=== PATIENT | female | born 1995 | race Caucasian/White ===

== ENCOUNTER 2020-09-26 17:31 | Emergency (ER) | payer BC, SELFPAY ==
--- NOTE | ~2020-09-26 | XR_ITS ---
EXAMINATION: XR chest 2V 09/26/2020 17:59 INDICATION: Wheezing and congestion. Cough. PROCEDURE: 2 view chest COMPARISON: No prior studies for comparison. FINDINGS: The lungs are clear. The cardiomediastinal silhouette is within normal limits. There are no pleural effusions. There is no pneumothorax suspected. IMPRESSION: 1: NO ACUTE CARDIOPULMONARY DISEASE. Reviewed, dictated and finalized at location A.
[2020-09-26 17:38] VITALS: BP 146/72; PULSE 91; RESP 18; TEMP 36.6; O2SAT 98
--- NOTE | 2020-09-26 17:47 | ED.URI ---
HPI - URI/Sore Throat General Chief Complaint: Upper Respiratory Infection Stated Complaint: congestion sore throat and cough Time Seen by Provider: 09/26/20 17:48 Source: patient and RN notes reviewed Mode of arrival: ambulatory Limitations: no limitations History of Present Illness HPI Narrative: 25-year-old female presents to the [facility] with complaints of cough, wheezing, congestion for the last 5 days. Has tried taking DayQuil with no relief. Denies fevers, nausea, vomiting or diarrhea. Denies chest pain. No abdominal pain. Related Data Home Medications Medication Instructions Recorded Confirmed aripiprazole 15 mg PO DAILY 09/26/20 09/26/20 buspirone 10 mg PO BID 09/26/20 09/26/20 duloxetine 60 mg PO DAILY 09/26/20 09/26/20 omeprazole 40 mg PO DAILY 09/26/20 09/26/20 Allergies Allergy/AdvReac Type Severity Reaction Status Date / Time Penicillins Allergy Unknown Verified 06/09/17 14:13 Review of Systems Review of Systems: Narrative: CONSTITUTIONAL: Denies fever, chills, or sweats. EYES: Denies visual changes, redness, or discharge. ENT: Denies rhinorrhea, congestion, sore throat, or otalgia. CARDIOVASCULAR: Denies chest pain, palpitations, or edema. RESPIRATORY: Reports cough with intermittent dyspnea and wheezing. Chest congestion GASTROINTESTINAL: Denies abdominal pain, nausea, vomiting, or diarrhea. MUSCULOSKELETAL: Denies back pain, joint pain, or myalgia. NEUROLOGIC: Denies headache, numbness, or weakness. PSYCHIATRIC: Denies anxiety or depression. All other systems reviewed are negative, except as documented in HPI. [facility] Surgical History Surgical History (Updated 09/26/20 @ 18:11 by Deb Velez) History of cholecystectomy Hx of tonsillectomy Family History Family History Other Diabetes mellitus Social History Social History Smoking status: Never smoker Alcohol intake: current Gender identity (if verbalized by the patient): Female Comments At the time of my signature, I reviewed and agree with the nursing past medical, surgical, social, and family history. There is no relevant family history pertinent to the patient complaint. Exam Narrative: Exam Narrative: GENERAL: This is a well-nourished, well-developed patient, in no apparent distress. obese HEAD: normocephalic, atraumatic. EYES: PERRL. Sclera clear/white. Vision is grossly intact. EARS: External ears normal, auditory canals clear and without drainage, TMs normal without perforation. Hearing grossly intact. NOSE: External nose normal with no obvious nasal discharge, nares without redness, no rhinorrhea. THROAT: Mucous membranes moist, posterior pharynx clear. NECK: Neck supple, non-tender without lymphadenopathy, masses or thyromegaly. CARDIOVASCULAR: Regular rate and rhythm without murmurs, gallops, or rubs. RESPIRATORY: Left lungs clear to auscultation. right lung wheezes. Without rales, or rhonchi. GASTROINTESTINAL: Abdomen soft, non-tender, nondistended. SKIN: warm, Dry, intact with no suspicious lesions or rash, good texture and turgor. NEURO: awake, alert, and oriented to person, place and time. There were no obvious focal neurologic abnormalities. Course Course Emergency Course: 1824 reevaluation post albuterol treatment. Lungs are now clear to auscultation. Patient states that she is feeling much better Vital Signs Vital signs: Vital Signs Temperature 98 F 09/26/20 17:38 Pulse Rate 91 09/26/20 17:38 Respiratory Rate 18 09/26/20 17:38 Blood Pressure 146/72 H 09/26/20 17:38 Pulse Oximetry 98 09/26/20 17:38 Temperature 98 F 09/26/20 17:38 Pulse Rate 91 09/26/20 17:38 Respiratory Rate 18 09/26/20 17:38 Blood Pressure 146/72 H 09/26/20 17:38 Pulse Oximetry 98 09/26/20 17:38 Reviewed, blood pressure mildly elevated. Educated patient on the importance of following up with prim
[2020-09-26] MEDS: ALBUTEROL SULFATE NEB 2.5 MG/3 ML INH INHALATION (18:04)
== END 2020-09-26 18:30 | disposition home or self-care (01) ==
PROVIDERS: Emergency Provider Nurse Practitioner
DX: J40 Bronchitis, not specified as acute or chronic (principal); K21.9 Gastro-esophageal reflux disease without esophagitis; F41.9 Anxiety disorder, unspecified; F32.9 Major depressive disorder, single episode, unspecified
CPT/HCPCS: 71046; 94640; 99213; G0463

== ENCOUNTER 2021-04-07 12:57 | Emergency (ER) | payer BC, SELFPAY ==
[2021-04-07 13:04] VITALS: BP 141/72; PULSE 93; RESP 20; TEMP 36.2; O2SAT 98
[2021-04-07 13:15] VITALS: BP 141/72; PULSE 93; RESP 20; TEMP 36.2; O2SAT 98
--- NOTE | 2021-04-07 13:22 | ED.URI ---
HPI - URI/Sore Throat General Chief Complaint: Upper Respiratory Infection Stated Complaint: Cough/Chest Congestion Time Seen by Provider: 04/07/21 13:18 Source: patient and RN notes reviewed Mode of arrival: ambulatory Limitations: no limitations History of Present Illness HPI Narrative: Keren is a 25-year-old female patient who ambulated into the [facility] today. Patient states she has a 1 day history of cough congestion and postnasal drainage. Patient has a history of allergies and bronchitis. Patient has been taking DayQuil at home without relief. MD elicited complaint: nasal congestion Related Data Home Medications Medication Instructions Recorded Confirmed aripiprazole 15 mg PO DAILY 09/26/20 04/07/21 buspirone 10 mg PO BID 09/26/20 04/07/21 duloxetine 60 mg PO DAILY 09/26/20 04/07/21 omeprazole 40 mg PO DAILY 09/26/20 04/07/21 clonazepam 0.5 mg PO DAILY 04/07/21 04/07/21 Allergies Allergy/AdvReac Type Severity Reaction Status Date / Time Penicillins Allergy Unknown Rash Verified 04/07/21 13:06 Review of Systems Review of Systems: CONSTITUTIONAL: Denies body aches, fever, chills, or sweats. EYES: Denies visual changes, redness, or discharge. ENT:+rhinorrhea,+ congestion,denies sore throat, or otalgia. CARDIOVASCULAR: Denies chest pain, palpitations, or edema. RESPIRATORY: + cough denies dyspnea. GASTROINTESTINAL: Denies abdominal pain, nausea, vomiting, or diarrhea. GENITOURINARY: Denies dysuria or hematuria. SKIN: Denies rash, itching, or wounds. MUSCULOSKELETAL: Denies back pain, joint pain, or myalgia. NEUROLOGIC: Denies headache, numbness, tingling, or weakness. PSYCH: Denies depression or anxiety. states hx bipolar All systems reviewed & are unremarkable except as noted in HPI and below PMFSH Surgical History Surgical History History of cholecystectomy Hx of tonsillectomy Family History Family History Other Diabetes mellitus Social History Social History Smoking status: Never smoker Alcohol intake: current Gender identity (if verbalized by the patient): Female Comments At time of signature, I have reviewed and agree with nursing past medical, surgical, social and family history unless otherwise noted. Please see nursing chart for further information. There is no relevant family history pertinent to the presenting complaint Exam Narrative: GENERAL: Well-appearing, well-nourished, and in no acute distress. HEAD: Normocephalic, atraumatic. EYES: EOMI. No redness or drainage. Conjunctivae normal. ENT: Mucous membranes pink and moist. Nasal membranes erythematous this with clear rhinorrhea. Tympanic membranes are dull with minimal bulging. Posterior pharynx is erythemic with moderate postnasal drainage.. NECK: Normal AROM. Supple. No lymphadenopathy. CHEST: No respiratory distress. Clear to auscultation. HEART: Regular rate and rhythm. No murmur appreciated. Normal peripheral pulses. ABDOMEN: Soft, nontender, nondistended, normal active bowel sounds. MUSCULOSKELETAL: No bony tenderness. EXTREMITIES: Normal range of motion. No edema. SKIN: Warm, dry, no rash. Capillary refill normal. Normal skin turgor. NEURO: No focal deficits. Alert and oriented x3. Gait steady. PSYCH: Normal affect. No signs of depression or anxiety. Course Vital Signs Vital signs: Vital Signs Temperature 36.2 C L 04/07/21 13:04 Pulse Rate 93 04/07/21 13:04 Respiratory Rate 20 04/07/21 13:04 Blood Pressure 141/72 H 04/07/21 13:04 Pulse Oximetry 98 04/07/21 13:04 Temperature 36.2 C L 04/07/21 13:15 Pulse Rate 93 04/07/21 13:15 Respiratory Rate 20 04/07/21 13:15 Blood Pressure 141/72 H 04/07/21 13:15 Pulse Oximetry 98 04/07/21 13:15 Reviewed. Pt has been instructed to follow up with her PCP regarding
== END 2021-04-07 13:30 | disposition home or self-care (01) ==
PROVIDERS: Emergency Provider Nurse Practitioner Family
DX: J06.9 Acute upper respiratory infection, unspecified (principal)
CPT/HCPCS: 99213; G0463

== ENCOUNTER 2021-05-25 14:28 | Emergency (ER) | payer BC, SELFPAY ==
[2021-05-25 14:34] VITALS: BP 139/85; PULSE 88; RESP 18; TEMP 36.1; O2SAT 99
--- NOTE | 2021-05-25 14:40 | ED.SKABFB ---
HPI - Skin/Abscess/Foreign Bdy General Chief complaint: Skin/Abscess/Foreign Body Stated complaint: Rash Time Seen by Provider: 05/25/21 14:40 Source: patient Mode of arrival: ambulatory Limitations: no limitations History of Present Illness HPI narrative: Keren Willingham is a 26 yo female with n PMH with a rash to back of R knee. size 4x2 with blistery appearance, x2 days Related Data Home Medications Medication Instructions Recorded Confirmed aripiprazole 15 mg PO DAILY 09/26/20 05/25/21 buspirone 10 mg PO BID 09/26/20 05/25/21 duloxetine 60 mg PO DAILY 09/26/20 05/25/21 clonazepam 0.5 mg PO DAILY PRN 04/07/21 05/25/21 Allergies Allergy/AdvReac Type Severity Reaction Status Date / Time Penicillins Allergy Unknown Rash Verified 05/25/21 14:40 Review of Systems Review of Systems: CONSTITUTIONAL: Denies fever, chills, sweats. EYES: Denies visual changes, redness, discharge. ENT: Denies rhinorrhea, congestion, sore throat, otalgia. CARDIOVASCULAR: Denies chest pain, palpitations, edema. RESPIRATORY: Denies dyspnea, wheezing, cough GASTROINTESTINAL: Denies abdominal pain, nausea, vomiting, diarrhea. GENITOURINARY: Denies dysuria, hematuria, abnormal discharge SKIN: Denies rash or itching. 4 x 2 reddened rash with pustular looking top, mild tenderness, no referred pain NEUROLOGIC: Denies numbness, or focal weakness. PSYCHIATRIC: Denies anxiety or depression. [facility] Past Medical History Medical History No acute medical problems Surgical History Surgical History History of cholecystectomy Hx of tonsillectomy Family History Family History Other Diabetes mellitus Social History Social History Smoking status: Never smoker Alcohol intake: current Gender identity (if verbalized by the patient): Female Comments At time of signature, I agree with nursing past medical, surgical, social and family history. There is no relevant family history pertinent to the presenting complaint. Exam Narrative: GENERAL: This is a well-nourished, well-developed patient, in mild distress. HEAD: normocephalic, atraumatic. EYES: Sclera clear/white. Vision is grossly intact. EARS: External ears normal, . Hearing grossly intact. NOSE: External nose normal , no rhinorrhea. THROAT: Mucous membranes moist, NECK: Neck supple, CARDIOVASCULAR: Regular rate and rhythm without murmurs, gallops, or rubs. RESPIRATORY: Clear to auscultation. Breath sounds equal bilaterally. No wheezes, rales, or rhonchi. GASTROINTESTINAL: Abdomen soft, non-tender, SKIN: warm, intact with n4x2 eruthematous area on nack of R knee, pustular and tenderness, no referred pain, no surrounding tenderness NEURO: awake, alert, and oriented to person, place and time. There were no obvious focal neurologic abnormalities. Steady gait EXTREMITIES: Normal range of motion. BACK: Nontender without deformity Course Course Emergency Course: Patient has small area behind right knee that looks pustular and erythematous but with no referred pain or painful is outside the 4 x 2 area Treat with triamcinolone and Keflex Discussed penicillin allergy and unlikelihood but possible cross reaction discussed how that would appear, to keep Band-Aid over area until healed Vital Signs Vital signs: Vital Signs Temperature 96.9 F L 05/25/21 14:34 Pulse Rate 88 05/25/21 14:34 Respiratory Rate 18 05/25/21 14:34 Blood Pressure 139/85 05/25/21 14:34 Pulse Oximetry 99 05/25/21 14:34 Temperature 96.9 F L 05/25/21 14:42 Pulse Rate 88 05/25/21 14:42 Respiratory Rate 18 05/25/21 14:42 Blood Pressure 139/85 05/25/21 14:42 Pulse Oximetry 99 05/25/21 14:42 MDM - Skin/Abscess/Foreign Bdy Differential Diagnosis Differential diagnosis
[2021-05-25 14:42] VITALS: BP 139/85; PULSE 88; RESP 18; TEMP 36.1; O2SAT 99
== END 2021-05-25 15:11 | disposition home or self-care (01) ==
PROVIDERS: Emergency Provider Nurse Practitioner
DX: L03.115 Cellulitis of right lower limb (principal); K21.9 Gastro-esophageal reflux disease without esophagitis; F41.9 Anxiety disorder, unspecified; F32.A Depression, unspecified
CPT/HCPCS: 99213; G0463

== ENCOUNTER 2021-06-23 14:08 | Outpatient (CLI) | payer BC, SELFPAY ==
--- NOTE | ~2021-06-23 | US_ITS ---
US breast LT limited 06/23/2021 14:43 Indication: Left breast lump Procedure: High-resolution Limited ultrasound of the left breast Comparison: No prior studies for comparison. Findings: At 3:00, 10 cm from the nipple, there is an oval predominantly hyperechoic mass measuring 1 .8 x 2.4 x 1.2 cm without significant internal vascularity or posterior features. There is parallel o rientation. Impression: 1: Solid hyperechoic left breast mass at 3:00, 10 cm from the nipple, likely benign lipoma or hematom a in the appropriate clinical setting. BI-RADS CATEGORY 3-PROBABLY BENIGN FINDING RECOMMENDATION: Six-month follow-up left breast ultrasound recommended. Reviewed, dictated and finalized at location A. CRUSHING MACHINE OPERATOR Impression: 1: Solid hyperechoic left breast mass at 3:00, 10 cm from the nipple, likely be nign lipoma or hematoma in the appropriate clinical setting. BI-RADS CATEGORY 3-PROBABLY BENIGN FINDING RECOMMENDATION: Six-month follow-up left breast ultrasound recommended.
== END 2021-06-23 14:09 | disposition home or self-care (01) ==
PROVIDERS: Visit Provider Obstetrics & Gynecology
DX: R92.8 Other abnormal and inconclusive findings on diagnostic imaging of breast (principal)
CPT/HCPCS: 76642

== ENCOUNTER 2021-06-27 10:18 | Emergency (ER) | payer BC, SELFPAY ==
[2021-06-27 10:22] VITALS: BP 145/82; PULSE 90; RESP 16; TEMP 36.4; O2SAT 100
--- NOTE | 2021-06-27 10:24 | ED.URI ---
HPI - URI/Sore Throat General Chief Complaint: Upper Respiratory Infection Stated Complaint: sore throat and cough Time Seen by Provider: 06/27/21 10:24 Source: patient and RN notes reviewed History of Present Illness HPI Narrative: Patient was a 26-year-old female who presents the urgent care with complaints of a sore throat and cough for the last 4 days. Patient states she has been using Mucinex and cold and flu medication [id number] without much relief. Patient denies any recent fever, nausea, vomiting or shortness of breath. Patient states that her recent COVID test was negative. Patient does not have the vaccine and denies of any recent or new exposures to COVID. No other acute complaints. No acute distress noted. Patient read the plan of care. Some parts of this dictation were generated by voice recognition software and may contain typographical and/or grammatical inaccuracies. Related Data Home Medications Medication Instructions Recorded Confirmed aripiprazole 15 mg PO DAILY 09/26/20 06/27/21 buspirone 10 mg PO BID 09/26/20 06/27/21 duloxetine 60 mg PO DAILY 09/26/20 06/27/21 clonazepam 0.5 mg PO DAILY PRN 04/07/21 06/27/21 Allergies Allergy/AdvReac Type Severity Reaction Status Date / Time Penicillins Allergy Unknown Rash Verified 06/27/21 10:31 Review of Systems Review of Systems: CONSTITUTIONAL: Denies fever, chills, or sweats. EYES: Denies visual changes, redness, or discharge. ENT: Reports of sore throat and postnasal drainage CARDIOVASCULAR: Denies chest pain, palpitations, or edema. RESPIRATORY: Reports a productive cough without dyspnea GASTROINTESTINAL: Denies abdominal pain, nausea, vomiting, or diarrhea. GENITOURINARY: Denies dysuria or hematuria. SKIN: Denies rash or itching. MUSCULOSKELETAL: Denies back pain, joint pain, or myalgia. NEUROLOGIC: Denies headache, numbness, or weakness. All other systems reviewed are negative, except as documented in HPI. [facility] Past Medical History Medical History (Updated 06/27/21 @ 10:34 by JASON Heath) Anxiety Bipolar 1 disorder H/O gastroesophageal reflux (GERD) PCOS (polycystic ovarian syndrome) Surgical History Surgical History History of cholecystectomy History of tonsillectomy and adenoidectomy Family History Family History Father Anxiety and depression Grandparent Renal cancer Diabetes mellitus Grandparent Breast cancer Social History Social History Smoking status: Current every day smoker Tobacco type: cigarettes Alcohol intake: current Alcohol use details: socially Substance use: never Gender identity (if verbalized by the patient): Female Agree to blood products: Yes Comments At the time of my signature, I reviewed and agree with the nursing past medical, surgical, social, and family history. There is no relevant family history pertinent to the patient complaint. Exam Narrative: GENERAL: This is a well-nourished, well-developed patient, in no apparent distress. HEAD: normocephalic, atraumatic. EYES: PERRL. Sclera clear/white. Vision is grossly intact. EARS: External ears normal, auditory canals clear and without drainage, TMs normal without perforation. Hearing grossly intact. NOSE: External nose normal with no obvious nasal discharge, nares without redness, no rhinorrhea. THROAT: Mucous membranes moist. Mild erythema noted to posterior pharynx with moderate postnasal drainage without exudate or ulceration. NECK: Neck supple, non-tender without lymphadenopathy, masses or thyromegaly. CARDIOVASCULAR: Regular rate and rhythm without murmurs, gallops, or rubs. RESPIRATORY: Scant expiratory wheezes throughout SKIN: warm, intact with no suspicious lesions or rash, good texture and turgor. NEURO: awake, alert, and o
== END 2021-06-27 10:35 | disposition home or self-care (01) ==
PROVIDERS: Emergency Provider Nurse Practitioner Family
DX: J40 Bronchitis, not specified as acute or chronic (principal); J02.9 Acute pharyngitis, unspecified; F17.210 Nicotine dependence, cigarettes, uncomplicated; K21.9 Gastro-esophageal reflux disease without esophagitis; E28.2 Polycystic ovarian syndrome; F41.9 Anxiety disorder, unspecified; F31.9 Bipolar disorder, unspecified
CPT/HCPCS: 87081; 99213; G0463

== ENCOUNTER 2022-02-16 10:21 | Emergency (ER) | payer BC, SELFPAY ==
--- NOTE | 2022-02-16 10:24 | ED.FEMALEGU ---
HPI - Female Genitourinary General Chief complaint: Urogenital-Female Stated complaint: possible yeast infection Time Seen by Provider: 02/16/22 10:24 Source: patient and RN notes reviewed History of Present Illness HPI Narrative: Patient is a 26-year-old female who presents the urgent care with complaints of a possible yeast infection. Patient states that for the last 2 days she has had some irritation to the vaginal region with some slight cloudy urine. Patient states she has had UTIs in the past but nothing for some time. Patient has not been on any recent antibiotics. Denies any [id number] use for her discomfort but states that she has used Monistat in the past for yeast. Patient denies any vaginal discharge. No other acute complaints. Denies of any concern for STD or . No acute distress noted. Patient aware of the plan of care. Some parts of this dictation were generated by voice recognition software and may contain typographical and/or grammatical inaccuracies. Related Data Home Medications Medication Instructions Recorded Confirmed aripiprazole 15 mg tablet 15 mg PO DAILY 02/16/22 02/16/22 buspirone 10 mg tablet 10 mg PO BID 02/16/22 02/16/22 duloxetine 60 mg capsule,delayed 60 mg PO DAILY 02/16/22 02/16/22 release Allergies Allergy/AdvReac Type Severity Reaction Status Date / Time Penicillins Allergy Unknown Rash Verified 02/16/22 10:26 Review of Systems Review of Systems: CONSTITUTIONAL: Denies fever, chills, or sweats. EYES: Denies visual changes, redness, or discharge. ENT: Denies rhinorrhea, congestion, sore throat, or otalgia. CARDIOVASCULAR: Denies chest pain, palpitations, or edema. RESPIRATORY: Denies cough or dyspnea. GASTROINTESTINAL: Denies abdominal pain, nausea, vomiting, or diarrhea. GENITOURINARY: Reports of vaginal irritation SKIN: Denies rash or itching. MUSCULOSKELETAL: Denies back pain, joint pain, or myalgia. NEUROLOGIC: Denies headache, numbness, or weakness. All other systems reviewed are negative, except as documented in HPI. [facility] Past Medical History Medical History (Updated 02/16/22 @ 10:49 by JASON Heath) Abnormal Pap smear of cervix 07/16/21, LGSIL Anxiety Bipolar 1 disorder H/O gastroesophageal reflux (GERD) PCOS (polycystic ovarian syndrome) Surgical History Surgical History History of cholecystectomy History of tonsillectomy and adenoidectomy Family History Family History Father Anxiety and depression Grandparent Renal cancer Diabetes mellitus Grandparent Breast cancer Social History Social History (Updated 07/16/21 @ 13:41 by Luzma Ferrer CMA) Smoking status: Current every day smoker Tobacco type: cigarettes Alcohol intake: current Alcohol use details: socially Substance use: never Gender identity (if verbalized by the patient): Female Agree to blood products: Yes Comments At the time of my signature, I reviewed and agree with the nursing past medical, surgical, social, and family history. There is no relevant family history pertinent to the patient complaint. Exam Narrative: GENERAL: This is a well-nourished, well-developed patient, in no apparent distress. HEAD: normocephalic, atraumatic. EYES: PERRL. Sclera clear/white. Vision is grossly intact. EARS: External ears normal NOSE: External nose normal with no obvious nasal discharge, nares without redness, no rhinorrhea. THROAT: Mucous membranes moist NECK: Neck supple GASTROINTESTINAL: Abdomen soft, non-tender, nondistended. No guarding. : Deferred exam SKIN: warm, intact with no suspicious lesions or rash, good texture and turgor. NEURO: awake, alert, and oriented to person, place and time. There were no obvious focal neurologic abnormalities. EXTREMITIES: No clubbing, cyanosis, or edema BACK: Negative bilatera
[2022-02-16 10:25] VITALS: BP 151/87; PULSE 96; RESP 18; TEMP 36.7; O2SAT 98
[2022-02-16 10:31] VITALS: BP 151/87; PULSE 96; RESP 18; TEMP 36.7; O2SAT 98
== END 2022-02-16 10:50 | disposition home or self-care (01) ==
PROVIDERS: Emergency Provider Nurse Practitioner Family
DX: B37.3 Candidiasis of vulva and vagina (principal); F31.9 Bipolar disorder, unspecified; K21.9 Gastro-esophageal reflux disease without esophagitis
CPT/HCPCS: 81003; 87086; 87088; 99213; G0463

== ENCOUNTER 2022-05-11 12:28 | Emergency (ER) | payer BC, SELFPAY ==
[2022-05-11 12:33] VITALS: BP 149/92; PULSE 82; RESP 16; TEMP 36.1; O2SAT 99
--- NOTE | 2022-05-11 13:33 | ED.FEMALEGU ---
HPI - Female Genitourinary General Chief complaint: Urogenital-Female Stated complaint: Urinary Problem Time Seen by Provider: 05/11/22 13:30 Source: patient and RN notes reviewed Mode of arrival: ambulatory Limitations: no limitations History of Present Illness HPI Narrative: 27-year-old female presented for complaint of burning with urination, frequency, and urgency since yesterday. She endorses pain at the end of her urinary stream and she did see some blood in the urine. She denies abdominal pain, flank pain, nausea, vomiting, diarrhea, fever or chills. She took azo for symptoms. LMP 04/27/2022. Denies concern for STD. Related Data Home Medications Medication Instructions Recorded Confirmed aripiprazole 15 mg tablet 15 mg PO DAILY 02/16/22 02/16/22 Allergies Allergy/AdvReac Type Severity Reaction Status Date / Time Penicillins Allergy Unknown Rash Verified 02/16/22 10:26 Review of Systems Review of Systems: CONSTITUTIONAL: Denies body aches, fever, chills, or sweats. CARDIOVASCULAR: Denies chest pain, palpitations, or edema. RESPIRATORY: Denies cough or dyspnea. GASTROINTESTINAL: Denies abdominal pain, nausea, vomiting, or diarrhea. GENITOURINARY: Reports dysuria, frequency, urgency, hematuria, denies flank pain SKIN: Denies rash, itching, or wounds. MUSCULOSKELETAL: Denies back pain or myalgia. [facility] Past Medical History Medical History Abnormal Pap smear of cervix 07/16/21, LGSIL Anxiety Bipolar 1 disorder H/O gastroesophageal reflux (GERD) PCOS (polycystic ovarian syndrome) Surgical History Surgical History History of cholecystectomy History of tonsillectomy and adenoidectomy Family History Family History Father Anxiety and depression Grandparent Renal cancer Diabetes mellitus Grandparent Breast cancer Social History Social History Smoking status: Current every day smoker Tobacco type: cigarettes Alcohol intake: current Alcohol use details: socially Substance use: never Gender identity (if verbalized by the patient): Female Agree to blood products: Yes Comments At time of signature, I have reviewed and agree with nursing past medical, surgical, social and family history unless otherwise noted. Please see nursing chart for further information. There is no relevant family history pertinent to the presenting complaint Exam Narrative: GENERAL: Well-appearing ENT: Mucous membranes pink and moist. CHEST: No respiratory distress. Clear to auscultation. HEART: Regular rate and rhythm. ABDOMEN: Soft, nontender, nondistended, normal active bowel sounds. No CVA tenderness MUSCULOSKELETAL: No bony tenderness. SKIN: Warm, dry, no rash. NEURO: No focal deficits. Alert and oriented x3. Gait steady. PSYCH: Normal affect. Course Course Emergency Course: Patient is aware of diagnosis, understands and agrees to treatment plan. Anticipatory guidance given. Patient agrees to follow-up as directed and is aware of reasons to seek care at the emergency department. Portions of this record may have been created with voice recognition software Level of Care: Express Care Visit Vital Signs Vital signs: Vital Signs Temperature 97.0 F L 05/11/22 12:33 Pulse Rate 82 05/11/22 12:33 Respiratory Rate 16 05/11/22 12:33 Blood Pressure 149/92 H 05/11/22 12:33 Pulse Oximetry 99 05/11/22 12:33 Oxygen Delivery Room Air 05/11/22 12:33 Temperature 97.0 F L 05/11/22 12:33 Pulse Rate 82 05/11/22 12:33 Respiratory Rate 16 05/11/22 12:33 Blood Pressure 149/92 H 05/11/22 12:33 Pulse Oximetry 99 05/11/22 12:33 Oxygen Delivery Room Air 05/11/22 12:33 Reviewed MDM - Female Genitourinary MDM Narrative Medical decision
== END 2022-05-11 13:44 | disposition home or self-care (01) ==
PROVIDERS: Emergency Provider Nurse Practitioner Family
DX: N39.0 Urinary tract infection, site not specified (principal); F17.200 Nicotine dependence, unspecified, uncomplicated
CPT/HCPCS: 81003; 87077; 87086; 87186; 99213; G0463

== ENCOUNTER 2023-08-03 17:38 | Emergency (ER) | payer OTHER, SELFPAY ==
[2023-08-03 17:55] VITALS: BP 149/81; PULSE 72; RESP 16; TEMP 36.2; O2SAT 100
[2023-08-03 18:43] LABS: Glucose Point of Care 262 mg/dl (65-105)
--- NOTE | 2023-08-03 18:48 | ED.FEMALEGU ---
HPI - Female Genitourinary General Chief complaint: Urogenital-Female Stated complaint: yeast infection/lower back pain History of Present Illness HPI Narrative: Pt is a 28 y/o female, presents to with C/O vaginal itching for the past week, which she suspects is a yeast infection; as she has had them in the past frequently. she denies urinary burning, urgency or increased frequency and she has no abnormal vaginal discharge or STI concerns. she does also mention; for the past 3 days, she has had some flank pain in the right without injury. it is mild but she became concerned she may have a kidney infection. she does recall one prior episode of renal colic but notes this is not as severe as pain she experienced with renal colic. she denies any other associated symptoms or modifying factors. Related Data Allergies Allergy/AdvReac Type Severity Reaction Status Date / Time Penicillins Allergy Unknown Rash Verified 02/16/22 10:26 Review of Systems Gastrointestinal: Comments: refer to HPI Genitourinary: Comments: refer to HPI [facility] Past Medical History Medical History Abnormal Pap smear of cervix 07/16/21, LGSIL Anxiety Bipolar 1 disorder H/O gastroesophageal reflux (GERD) PCOS (polycystic ovarian syndrome) Surgical History Surgical History History of cholecystectomy History of tonsillectomy and adenoidectomy Family History Family History Father Anxiety and depression Grandparent Renal cancer Diabetes mellitus Grandparent Breast cancer Social History Social History Smoking status: Current every day smoker Tobacco type: cigarettes Alcohol intake: current Alcohol use details: socially Substance use: never Gender identity (if verbalized by the patient): Female Agree to blood products: Yes Exam Const: General: healthy appearing, no acute distress and alert Nutritional Appearance: obese Orientation/consciousness: patient oriented x3 Limitations: no limitations HENMT: Head: normal to inspection Ears: external ears normal Mouth: Yes Normal oral and palatal mucosa present Teeth and gingiva: dentition normal Throat: posterior oropharynx normal Eyes: Conjunctivae: conjunctivae normal Pupils: Equal, round and reactive pupils present EOM: EOMs intact bilaterally Direct Ophthalmoscopy: no photophobia Neck: Neck: normal visual inspection, no lymphadenopathy and no meningeal signs Chest: Chest palpation & inspection: normal inspection of the chest Resp: Effort & Inspection: normal respiratory effort Cardio: Rate: regular rate GI: GI Palp: Yes Soft to palpation, No Tenderness to palpation present (GI), No Guarding due to palpation present (GI), No Rigid due to palpation, No Hernia present, No Palpable mass present and No Rebound tenderness present Auscultation: normal bowel sounds : General: Yes bladder normal to palpation and Yes no CVA tenderness Skin: General skin exam: normal color Rashes: no rashes Wounds: no wounds Neuro: General: patient oriented x3, moves all extremities, no meningeal signs, no focal motor deficits and CN's II-XI intact bilaterally Cranial nerves: Yes Nystagmus not present Course Course Emergency Course: pt shows no leuks on u dip however, she does have 2+ glucose. An accucheck is completed and her FSBS is >250. She is advised she is in fact, diabetic and outpatient FU is indicated. She notes she recently gained medical insurance and was planning to establish care with a local PCP. She declines transfer to the ED for CT renal protocol or further diabetic management. Will treat with oral Diflucan at this time, PCP FU outpatient for management of diabetes, referral for PCP provided. Pt verbalizes understanding and does agree to proce
== END 2023-08-03 19:10 | disposition home or self-care (01) ==
PROVIDERS: Emergency Provider Nurse Practitioner Family
DX: R73.9 Hyperglycemia, unspecified (principal); N76.0 Acute vaginitis; F17.210 Nicotine dependence, cigarettes, uncomplicated; K21.9 Gastro-esophageal reflux disease without esophagitis; E28.2 Polycystic ovarian syndrome
CPT/HCPCS: 81003; 82948; 99213; G0463

== ENCOUNTER 2023-08-07 19:14 | Emergency (ER) | payer OTHER, SELFPAY ==
--- NOTE | ~2023-08-07 | CT_ITS ---
EXAMINATION: CT abdomen pelvis wo con DATE: 08/07/2023 20:54 INDICATION: right flank pain, hematuria, hsx of stone TECHNIQUE: Computed tomography (CT) of the abdomen and pelvis was performed without intravenous contr ast. Automated exposure control and iterative reconstruction technique were employed. The dose-length product was 1495.21 mGy-cm. COMPARISON: 09/17/2017. FINDINGS: Lower thorax: Unremarkable Liver: Enlarged. Diffuse parenchymal low density. Biliary/Gallbladder: Gallbladder is absent. No bile duct dilation. Pancreas: No mass or duct dilation. Spleen: Normal. Adrenals:No mass. Kidneys: Irregular area of stranding at the superior right renal pole. 5.4 cm simple right upper pole cyst. 1.9 cm simple right midpole cyst. Multiple nonobstructing left renal calculi measuring up to 3 mm in the left lower pole. GI tract: No small or large bowel dilation. Normal appendix. Mesentery/Peritoneum: No ascites, mass, or free air. Retroperitoneum: No mass. Pelvis: Pelvic organs are within normal limits. Soft Tissues: Soft tissues and body wall unremarkable. Bones: No acute osseous finding. IMPRESSION: Hepatomegaly with steatosis. Focus of soft tissue density stranding at the superior right renal pole may represent a recently rupt ured cyst. No CT evidence of obstructive uropathy. Reviewed, dictated and finalized at location [facility] IMPRESSION: Hepatomegaly with steatosis. Focus of soft tissue density stranding at the superior right renal pole may rep resent a recently ruptured cyst. No CT evidence of obstructive uropathy.
[2023-08-07 19:15] VITALS: BP 143/84; PULSE 105; RESP 20; TEMP 36.3; O2SAT 100
--- NOTE | 2023-08-07 19:46 | ED.ABDPAIN ---
HPI - Abdominal Pain General Chief Complaint: Abdominal Pain Stated Complaint: right side/flank pain, i think i have a kidney sto Time Seen by Provider: 08/07/23 19:19 History of Present Illness HPI narrative: 28-year-old female presented to the emergency department for evaluation of right flank pain that is been intermittent since but has been worsening. When patient had follow-up with the urgent care they told her that she did have elevated blood sugar. Patient has no prior history of diabetes. Patient does have a prior history of kidney stones. Patient states he does currently have a yeast infection. Related Data Allergies Allergy/AdvReac Type Severity Reaction Status Date / Time Penicillins Allergy Unknown Rash Verified 08/07/23 19:19 Review of Systems Review of Systems: All systems reviewed & are unremarkable except as noted in HPI and below PMFSH Past Medical History Medical History Abnormal Pap smear of cervix 07/16/21, LGSIL Anxiety Bipolar 1 disorder H/O gastroesophageal reflux (GERD) PCOS (polycystic ovarian syndrome) Surgical History Surgical History History of cholecystectomy History of tonsillectomy and adenoidectomy Family History Family History Father Anxiety and depression Grandparent Renal cancer Diabetes mellitus Grandparent Breast cancer Social History Social History Smoking status: Current every day smoker Tobacco type: cigarettes Alcohol intake: current Alcohol use details: socially Substance use: never Gender identity (if verbalized by the patient): Female Agree to blood products: Yes Exam Narrative: APPEARANCE: Well appearing, no pain, no distress, well-nourished. HEAD: normocephalic, atraumatic. EYES: PERRLA/EOMI, conjunctivae clear. NOSE: Normal no drainage NECK: Supple. No adenopathy, no masses. RESPIRATORY: Airway patent, respirations nonlabored. Clear to auscultation bilaterally, no rales, rhonchi, wheezing. CARDIOVASCULAR: Regular rate and rhythm without murmurs rubs or gallops. ABDOMINAL: Soft, normal bowel sounds, right upper quadrant tenderness to palpation MUSCULOSKELETAL: Moves all extremities. Strength/ROM intact, No edema, No calf tenderness. NEURO: Alert. Cranial nerves II through XII intact. Grossly intact SKIN: Warm, dry. Normal Color Course Course Emergency Course: Patient will be discharged to home with outpatient follow-up for her hyperglycemia. Vital Signs Vital signs: Vital Signs Temperature 97.4 F L 08/07/23 19:15 Pulse Rate 105 H 08/07/23 19:15 Respiratory Rate 20 08/07/23 19:15 Blood Pressure 143/84 H 08/07/23 19:15 Pulse Oximetry 100 08/07/23 19:15 Oxygen Delivery Room Air 08/07/23 19:15 Temperature 98.5 F 08/07/23 22:42 Pulse Rate 70 08/07/23 22:20 Respiratory Rate 18 08/07/23 22:20 Blood Pressure 132/75 08/07/23 22:20 Pulse Oximetry 98 08/07/23 22:20 Oxygen Delivery Room Air 08/07/23 19:15 MDM - Abdominal Pain MDM Narrative Medical decision making narrative: 28-year-old female present to the emergency department for evaluation right flank pain. Patient does have a mild leukocytosis of 13.1 but a stable hemoglobin of 12.5. Patient does have an elevated blood glucose of 330 but no anion gap. Patient does have evidence of a urinary tract infection with ketones in the urine. Patient was treated with 2 L IV fluids in the emergency department. Patient was started on IV Rocephin for her urinary tract infection. Patient was also treated with a single dose fluconazole for her current vaginal candidiasis. Patient will be started on Keflex for home and will be provided an additional fluconazole for after she completes her antibiotics. Patient was also pro
[2023-08-07 19:56] VITALS: PULSE 78; RESP 17; O2SAT 97
[2023-08-07] MEDS: HYDROmorphone HCL INJ (*CRX) 1 MG/ML SYR IV PUSH (19:59)
[2023-08-07] MEDS: ACETAMINOPHEN 500 MG TABLET 1000 MG PO (19:59)
[2023-08-07] MEDS: SODIUM CHLORIDE 0.9% IV 1,000 ML 999 ML IV CONT (20:00)
[2023-08-07 20:08] LABS: Basophils Absolute Auto 0.1 K/mm3 (0.0-0.1); Basophils Percent Auto 0.6 % (0.2-1.2); Eosinophils Percent Auto 0.3 % (0-4.4); Hematocrit 41.3 % (37.0-47.0); Hemoglobin 12.5 g/dL (12.0-15.0); Immature Granulocyte Absolute 0.09 K/mm3 (0.00-0.031); Immature Granulocyte Percent A 0.7 % (0-0.5); Lymphocytes Absolute Auto 3.92 K/mm3 (0.9-3.2); Lymphocytes Percent Auto 29.9 % (18.3-44.2); Mean Corpuscular HGB Conc 30.3 g/dl (32-36); Mean Corpuscular Hemoglobin 22.3 pg (26-34); Mean Corpuscular Volume 73.6 fl (80-100); Mean Platelet Volume 10.1 fl (7.4-10.4); Monocytes Absolute Auto 1.1 K/mm3 (0.1-0.6); Monocytes Percent Auto 8.5 % (2.6-8.5); Neutrophils Absolute Auto 7.9 K/mm3 (1.3-6.7); Platelet Count Result 375 k/mm3 (150-375); Red Blood Count 5.61 M/mm3 (4.2-5.4); Red Cell Distribution Width 14.6 % (11.5-14.5); White Blood Count 13.1 K/mm3 (4.5-10.0)
[2023-08-07 20:20] LABS: Alanine Aminotransferase 17 U/L (6-35); Albumin Level 4.1 g/dL (3.5-5.1); Alkaline Phosphatase 94 U/L (38-126); Anion Gap 8 mmol/L (8-16); Aspartate Amino Transferase 23 U/L (14-36); Bilirubin,Total 0.6 mg/dL (0.2-1.3); Blood Urea Nitrogen 9 mg/dL (7-17); Calcium 10.3 mg/dL (8.4-10.2); Carbon Dioxide 26 mmol/L (22-30); Chloride 100 mmol/L (98-107); Estimated CRCL calculation 148 ml/min; Estimated Glomerular Filt Rate > 60; Glucose 323 mg/dL (65-110); Potassium 3.7 mmol/L (3.4-5.0); Sodium 134 mmol/L (137-145)
[2023-08-07 20:28] LABS: Appearance Urine Cloudy (Clear); Bacteria Urine 4+ /hpf; Bilirubin Urine Negative (Negative); Color Urine Yellow (Yellow); Glucose Urine UA 3+ mg/dL (Negative); Ketones Urine Trace mg/dL (Negative); Leukocyte Esterase Ur Negative LEU/UL (Negative); Need Manual Microscopic Reviewed; Nitrate Urine Negative (Negative); Protein Urine 2+ mg/dL (Negative); Squamous Epithelial Cell Urine Many /hpf (Few); Urobilinogen Urine 0.2 mg/dL (<2.0); WBC Urine 21-50 /hpf; pH Urine 5.5 (5.0-9.0)
[2023-08-07 20:29] LABS: Add Urine Microscopic? YES; Specific Grav Ur 1.044 (1.001-1.035)
[2023-08-07 20:43] VITALS: PULSE 75; RESP 18; O2SAT 97
[2023-08-07] MEDS: SODIUM CHLORIDE 0.9% IV 1,000 ML 999 ML (21:27)
[2023-08-07] MEDS: FLUCONAZOLE 150 MG TABLET PO (21:56)
[2023-08-07 21:59] LABS: Hemoglobin A1C 12.7 % (<5.7)
[2023-08-07 22:19] LABS: Glucose Point of Care 272 mg/dl (65-105)
[2023-08-07 22:20] VITALS: BP 132/75; PULSE 70; RESP 18; O2SAT 98
[2023-08-07 22:42] VITALS: TEMP 36.9
== END 2023-08-07 22:43 | disposition home or self-care (01) ==
PROVIDERS: Emergency Medicine; Emergency Provider Emergency Medicine
DX: N39.0 Urinary tract infection, site not specified (principal); B37.31 Acute candidiasis of vulva and vagina; R73.9 Hyperglycemia, unspecified; E28.2 Polycystic ovarian syndrome; F17.210 Nicotine dependence, cigarettes, uncomplicated; Z87.442 Personal history of urinary calculi; Z90.49 Acquired absence of other specified parts of digestive tract; K76.0 Fatty (change of) liver, not elsewhere classified
CPT/HCPCS: 36415; 74176; 80053; 81001; 81025; 82948; 83036; 85025; 87077; 87086; 87088; 87186; 96361; 96365; 96375; 99284; A9270; J0696; J1170; J7030

== ENCOUNTER 2025-02-13 23:25 | Emergency (ER) | payer SELFPAY ==
--- NOTE | ~2025-02-13 | CT_ITS ---
EXAMINATION: CT abdomen pelvis w con DATE: 02/14/2025 01:28 INDICATION: Left abdominal and flank pain. TECHNIQUE: Computed tomography (CT) of the abdomen and pelvis was performed with 100 mL Omnipaque-350 intravenous contrast. Automated exposure control and iterative reconstruction technique were employed. The dose-length product was 1613.21 mGy-cm. COMPARISON: None FINDINGS: Lung bases are clear. Heart size is normal. No pericardial or pleural effusion. Cholecystectomy clips at the gallbladder fossa. Liver, spleen, pancreas, bilateral adrenal glands and left kidney are normal. 2.3 cm simple appearing cyst at the lower pole of the right kidney. 4.0 x 3.9 cm complex Bosniak 2F cystic lesion at the upper pole of the right kidney with 2-3 mm thick peripheral enhancing wall and suggestion of a subtle hairline nearly indiscernible internal septation. The lesion is located at the site of a prior 5.6 cm simple appearing cystic lesion. There are 4 nonobstructing stones in the left kidney the largest in lower pole calyx measuring 3-4 mm maximal diameter. There is a 5 mm stone in the mid to distal left ureter with mild left hydronephrosis and mild stranding along the more proximal left ureter. Bladder, anteverted uterus and right adnexa are unremarkable. 2.0 cm cyst/dominant follicle at the left ovary. Minimal amount of likely physiologic free fluid in the pelvis. Bowels including the appendix are normal. Mild thoracic spondylosis. IMPRESSION: 1. Left nephrolithiasis with at least partially obstructing 5 mm stone in the mid to distal left ureter with mild left hydronephrosis. 2. 4.0 cm Bosniak 2F cystic right renal lesion. Recommend six-month follow-up pre and postcontrast MRI or CT. Reviewed, dictated and finalized at location [facility]. IMPRESSION: 1. Left nephrolithiasis with at least partially obstructing 5 mm stone in the m id to distal left ureter with mild left hydronephrosis. 2. 4.0 cm Bosniak 2F cystic right renal lesion. Recommend six-month follow-up p re and postcontrast MRI or CT.
[2025-02-13 23:34] VITALS: BP 154/94; PULSE 76; RESP 18; O2SAT 97
[2025-02-14] MEDS: ONDANSETRON INJ 4 MG/2 ML VIAL IV PUSH (00:07)
[2025-02-14] MEDS: SODIUM CHLORIDE 0.9% IV 1,000 ML 999 ML IV CONT (00:07)
[2025-02-14 00:13] LABS: Alanine Aminotransferase 22 U/L (6-35); Albumin Level 4.3 g/dL (3.5-5.1); Alkaline Phosphatase 101 U/L (38-126); Anion Gap 9 mmol/L (4-12); Aspartate Amino Transferase 23 U/L (14-36); Bilirubin,Total 0.4 mg/dL (0.2-1.3); Blood Urea Nitrogen 12 mg/dL (7-17); Calcium 9.2 mg/dL (8.4-10.2); Carbon Dioxide 25 mmol/L (22-30); Chloride 101 mmol/L (98-107); Estimated Glomerular Filt Rate > 60; Glucose 156 mg/dL (65-110); Lipase 114 U/L (23-300); Potassium 3.7 mmol/L (3.4-5.0); Sodium 135 mmol/L (137-145); Total Protein 8.1 g/dL (6.3-8.2)
[2025-02-14 00:21] LABS: Hematocrit 42.4 % (37.0-47.0); Hemoglobin 13.3 g/dL (12.0-15.0); Immature Granulocyte Percent A 0.5 % (0-0.5); Lymphocytes Absolute Auto 3.58 K/mm3 (0.9-3.2); Mean Corpuscular HGB Conc 31.4 g/dl (32-36); Mean Corpuscular Hemoglobin 25.7 pg (26-34); Mean Corpuscular Volume 82.0 fl (80-100); Nucleated Red Blood Cells Absolute Auto 0.000 K/mm3 (0.0-0.012); Nucleated Red Blood Cells Perc 0.0 % (0.0-0.2); Platelet Count Result 447 k/mm3 (150-375); Red Blood Count 5.17 M/mm3 (4.2-5.4); White Blood Count 17.6 K/mm3 (4.5-10.0)
--- NOTE | 2025-02-14 00:21 | ED.ABDPAIN ---
HPI - Abdominal Pain General Chief Complaint: Urogenital-Female Stated Complaint: flank pain Time Seen by Provider: 02/13/25 23:29 Source: patient Mode of arrival: ambulatory Limitations: no limitations History of Present Illness HPI narrative: This is a 29-year-old female that presents to the emergency department for left-sided abdominal pain. Reports associated nausea and vomiting. Reports urinary hesitancy. Denies fevers, dysuria, hematuria. Related Data Allergies Allergy/AdvReac Type Severity Reaction Status Date / Time Penicillins Allergy Unknown Rash Verified 08/07/23 19:19 Review of Systems Review of Systems: All systems reviewed & are unremarkable except as noted in HPI and below PMFSH Past Medical History Medical History Abnormal Pap smear of cervix 07/16/21, LGSIL Anxiety Bipolar 1 disorder H/O gastroesophageal reflux (GERD) PCOS (polycystic ovarian syndrome) Surgical History Surgical History History of cholecystectomy History of tonsillectomy and adenoidectomy Family History Family History Father Anxiety and depression Grandparent Renal cancer Diabetes mellitus Grandparent Breast cancer Social History Social History Smoking status: Current every day smoker Tobacco type: cigarettes Alcohol intake: current Alcohol use details: socially Substance use: never Gender identity (if verbalized by the patient): Female Agree to blood products: Yes Exam Narrative: GENERAL: Well-appearing, well-nourished, and in no acute distress. HEAD: Normocephalic, atraumatic. EYES: EOMI. CHEST: Clear to auscultation. No respiratory distress. No wheezes rales or rhonchi HEART: Regular rate and rhythm. No murmur heard. Normal peripheral pulses. ABDOMEN: Soft, nontender, nondistended, normal active bowel sounds. EXTREMITIES: Normal range of motion. No edema. SKIN: Warm, dry, no rash. NEURO: No focal deficits. Alert and oriented x3. PSYCH: Normal mood and affect Course Course Emergency Course: Patient updated on her workup and agrees with plan of care Consultations Consultation #1: Spoke with Urology about patient and workup. Patient will follow up in clinic Date: 02/14/25 Vital Signs Vital signs: Vital Signs Pulse Rate 76 02/13/25 23:34 Respiratory Rate 18 02/13/25 23:34 Blood Pressure 154/94 H 02/13/25 23:34 Pulse Oximetry 97 02/13/25 23:34 Pulse Rate 76 02/13/25 23:34 Respiratory Rate 18 02/13/25 23:34 Blood Pressure 154/94 H 02/13/25 23:34 Pulse Oximetry 97 02/13/25 23:34 MDM - Abdominal Pain MDM Narrative Medical decision making narrative: Patient presents the emergency department for left-sided abdominal/flank pain. She is afebrile and nontoxic appearing. Her vitals are stable. CBC with leukocytosis to 17.6. Metabolic panel with normal appearing kidney function. Urine shows red blood cells, also 1+ leuk esterase and 11-20 white cells. Although many squamous epithelial cells present. Will send this for culture. CT abdomen and pelvis showing a 3 mm distal left ureteral stone. Patient was updated on her workup. Pain is under control currently. Spoke with Urology about patient and workup. Patient will follow up in clinic. She was given warnings to return to the ER Differential Diagnosis Differential diagnosis: Likely calculus of kidney, diverticulitis and other (UTI, pyelonephritis) Lab Data Attestation: I reviewed the patient's lab results. 02/13/25 23:54 02/13/25 23:54 Labs: Lab Results 02/13/25 02/14/25 Range/Units 23:54 00:03 WBC 17.6 H (4.5-10.0) K/mm3 RBC 5.17 (4.2-5.4) M/mm3 Hgb 13.3 (12.0-15.0) g/dL Hct 42.4 (37.0-47.0) % MCV 82.0 (80-100) fl MCH 25.7 L (26-34) pg MCHC 31.4 L (32-36) g/dl RDW 13.7 (11.5-14.5) % Plt Count 447 H (150-375) k/mm3 MPV 10.0 (7.4-10.4) fl Immature Gran % (Auto) 0.5 (0-0.5) % Neut % (Auto) 72.9 (45.5-73.1) % Lymph % (Auto) 20.3 (18.3-44.2) % [place] % (Auto) 5.2 (2.6-8.5) % Eos % (Auto) 0.6 (0-4.4) % Baso % (Auto) 0.5 (0.2-1.2) % Lymph # (Auto) 3.58 H (0.9-3.2) K/mm3 [place] # (Auto) 0.9 H (0.1-0.6) K/mm3 Eos # (Auto) 0.1 (0-0.3) K/mm3 Baso # (Auto) 0.1 (0.0-0.1) K/mm3 Abs Immat Gran (auto) 0.09 H (0.00-0.031) K/mm3 Absolute Neuts (auto) 12.8 H (1.3-6.7) K/mm3 Absolute Nucleated RBC 0.000 (0.0-0.012) K/mm3 Nucleated RBC % 0.0 (0.0-0.2) % Sodium 135 L (137-145) mmol/L Potassium 3.7 (3.4-5.0) mmol/L Chloride 101 (98-107) mmol/L Carbon Dioxide 25 (22-30) mmol/L Anion Gap 9 (4-12) mmol/L BUN 12 (7-17) mg/dL Creatinine 0.88 (0.7-1.0) mg/dL Estim Creat Clear Calc Not Reportable Estimated GFR > 60 (59 - ) Glucose 156 H (65-110) mg/dL Calcium 9.2 (8.4-10.2) mg/dL Total Bilirubin 0.4 (0.2-1.3) mg/dL AST 23 (14-36) U/L ALT 22 (6-35) U/L Alkaline Phosphatase 101 (38-126) U/L Total Protein 8.1 (6.3-8.2) g/dL Albumin 4.3 (3.5-5.1) g/dL Lipase 114 (23-300) U/L Urine Color Dark yellow (Yellow) Urine Appearance Cloudy H (Clear) Urine pH 5.5 (5.0-9.0) Ur Specific [place] 1.025 (1.001-1.035) Urine Protein 2+ H (Negative) mg/dL Urine Glucose (UA) Negative (Negative) mg/dL Urine Ketones Trace H (Negative) mg/dL Ur Blood (Man) 3+ H (Negative) Urine Nitrate Negative (Negative) Urine Bilirubin Negative (Negative) Urine Urobilinogen 1.0 (<2.0) mg/dL Add Ur Microanalysis Reviewed Leukocyte Esterase Rfl 1+ H (Negative) NYLA/UL Urine RBC >100 H (0-2) /hpf Urine WBC 11-20 H (0-3) /hpf Ur Squamous Epith Cells Many H (Few) /hpf Urine Bacteria 1+ H /hpf Urine Casts 6-10 POC Urine HCG, Qual Negative (Negative) Imaging Data Radiologist's impression: CT abdomen pelvis: Mild left hydroureteronephrosis secondary to a 3 mm stone in the distal ureter Critical Care Time Critical Care Time Critical Care Time: No Discharge Plan Discharge Clinical Impression: Ureterolithiasis, Abnormal urinalysis Patient Disposition: Home Condition: Stable Instructions: Antibiotic Form, Kidney Stones (ED), How to Strain Your Urine (ED) Additional Instructions: Return to the ER if you experience fever, abdominal pain with nausea and vomiting, you are unable to keep down liquids or solids, pain or burning with urination, or any other symptoms that are concerning to you Remain well hydrated. Take Flomax as prescribed. Over the counter pain medication as needed. Prescribed pain medication as needed. Take oral antibiotic as prescribed. Strain your urine Follow up with Urology Patient Language: Hong Konger Prescriptions: New cefdinir 300 mg capsule 300 mg PO Q12H 5 Days Qty: 10 0RF tamsulosin 0.4 mg capsule 0.4 mg PO DAILY 7 Days Qty: 7 0RF hydrocodone-acetaminophen 5-325 mg tablet 1 tablet PO Q6H PRN (Reason: pain) Qty: 14 0RF No Action fluconazole 150 mg tablet 150 mg PO Q72H Qty: 2 0RF Rx Instructions: as a single dose fluconazole 150 mg tablet 150 mg PO ONCE Qty: 1 0RF Rx Instructions: as a single dose after you complete your antibiotics cephalexin 500 mg capsule 500 mg PO Q8H 7 Days Qty: 21 0RF Follow-up/Referrals: Wenceslao Arevalo MD [Physician, Urology] PHYSICIAN,INSURANCE LICENSING SUPERVISOR [Primary Care Provider, Internal Medicine]
[2025-02-14 00:25] LABS: BEDSIDEPREGUCG Negative (Negative)
[2025-02-14 01:04] LABS: Add Urine Microscopic? YES; Appearance Urine Cloudy (Clear); Glucose Urine UA Negative (Negative); Leukocyte Esterase Ur 1+ LEU/UL (Negative); Need Manual Microscopic Reviewed; Nitrate Urine Negative (Negative); Specific Grav Ur 1.025 (1.001-1.035)
[2025-02-14] MEDS: MORPHINE SULFATE (*CRX) 4 MG/ML INJ IV PUSH (01:10)
[2025-02-14] MEDS: FLUCONAZOLE 150 MG TABLET PO (03:17)
[2025-02-14] MEDS: cefTRIAXone 1 GM in SODIUM CHLORIDE 0.9% IV 50 ML 100 ML IVPB (03:17)
[2025-02-14 03:45] VITALS: BP 127/82; PULSE 82; RESP 16; O2SAT 95
== END 2025-02-14 03:45 | disposition home or self-care (01) ==
PROVIDERS: Emergency Provider Physician Assistant
DX: N13.2 Hydronephrosis with renal and ureteral calculous obstruction (principal); R82.998 Other abnormal findings in urine; E28.2 Polycystic ovarian syndrome; K21.9 Gastro-esophageal reflux disease without esophagitis; F31.9 Bipolar disorder, unspecified; F41.9 Anxiety disorder, unspecified; Z90.49 Acquired absence of other specified parts of digestive tract; F17.210 Nicotine dependence, cigarettes, uncomplicated
CPT/HCPCS: 36415; 74177; 80053; 81001; 81025; 83690; 85025; 87086; 96361; 96365; 96375; 99284; A9270; J0696; J2270; J2405; J7030; Q9967

== ENCOUNTER 2025-02-21 14:16 | Emergency (ER) | payer OTHER, SELFPAY ==
--- NOTE | ~2025-02-21 | XR_ITS ---
EXAMINATION: XR abdomen/kub 1V DATE: 02/21/2025 15:01 INDICATION: Stone in the bladder. Bladder fullness with low output. TECHNIQUE: A supine view of the abdomen on 2 radiographs was obtained. COMPARISON: None. FINDINGS: Stable pattern of multiple phleboliths in the pelvis, 9 on the left and 4 on the right. The stone at the junction of the mid to distal left ureter seen on prior CT is unable to be definitively identified on the current study. Assessment is however limited by mild pattern of stool in the sigmoid colon which projects over the prior region of the stone. No evident bladder stone. The smaller stones is noted at the left kidney are also unable to be distinguished on the plain radiographs. No dilated loops of gas-filled bowel to suggest obstruction. Cholecystectomy clips in right upper quadrant. Lung bases are clear. Bones are unremarkable. IMPRESSION: 1. Unchanged pattern of multiple phleboliths in the pelvis. The patient is noted stone in the mid to distal left ureter is not visualized and has either passed or is obscured by stool in the sigmoid colon. Reviewed, dictated and finalized at location A. IMPRESSION: 1. Unchanged pattern of multiple phleboliths in the pelvis. The patient is note d stone in the mid to distal left ureter is not visualized and has either passe d or is obscured by stool in the sigmoid colon.
--- NOTE | 2025-02-21 14:27 | ED_ITS ---
HPI - Female Genitourinary General Chief complaint: Urogenital-Female Stated complaint: uti symptoms Time Seen by Provider: 02/21/25 14:35 Source: patient Mode of arrival: ambulatory Limitations: no limitations History of Present Illness HPI Narrative: Keren is a 29-year-old female patient presenting to the clinic today with complaints sensation of her bladder being full and only being able to urinate a small amount. Reports on February 14 she was seen in the ER for a kidney stone that was in the left distal ureter-3 mm stone. Has been taking her Flomax. States she is no longer having any pain however she has not the stone pass. Denies any burning with urination. She denies any vaginal discharge her odor. No concern for STIs. Last menstrual period was January 15 2025. Has not taken any medications for her symptoms. Patient denies any blood in her urine. Related Data Home Medications ?Medication ?Instructions ?Recorded ?Confirmed ?Last Taken ?Type clonazepam 0.5 mg tablet mg 02/21/25 Unknown History gabapentin 300 mg capsule mg 02/21/25 Unknown History glycopyrrolate 1 mg tablet mg 02/21/25 Unknown Histor y metformin 500 mg tablet mg 02/21/25 Unknown History propranolol 10 mg tablet mg 02/21/25 Unknown History semaglutide 0.25 mg or 0.5 mg (2 mg subcut 02/21/25 U nknown History mg/3 mL) subcutaneous pen injector (Ozempic) terbinafine HCl 250 mg tablet mg 02/21/25 Unknown His tory venlafaxine 75 mg capsule,extended mg PO 02/21/25 Unk nown History release 24 hr Allergies Allergy/AdvReac Type Severity Reaction Status Date / Time Penicillins Allergy Unknown Rash Verified 02/21/25 14:19 Review of Systems Review of Systems: Pertinent positives per HPI. Patient denies any fever, chills, rash, headache, visual changes, dizziness, cough, runny nose, sore throat, shortness of breath, chest pain, palpitations, nausea, vomiting, diarrhea, constipation, abdominal pain PMFSH Past Medical History Medical History Abnormal Pap smear of cervix 07/16/21, LGSIL Anxiety Bipolar 1 disorder H/O gastroesophageal reflux (GERD) PCOS (polycystic ovarian syndrome) Surgical History Surgical History History of tonsillectomy and adenoidectomy History of cholecystectomy Family History Family History Father Anxiety and depression Grandparent Renal cancer Diabetes mellitus Grandparent Breast cancer Social History Social History Smoking status: Current every day smoker Tobacco type: cigarettes Alcohol intake: current Alcohol use details: socially Substance use: never Gender identity (if verbalized by the patient): Female Agree to blood products: Yes Comments At the time of my signature, I reviewed and agree with the nursing past medical, surgical, social, and family history. There is no relevant family history pertinent to the patient complaint. Exam Narrative: General: Well-developed, morbidly obese, in no apparent distress. Head: Normocephalic, atraumatic. Cardio: Regular rate and rhythm, s1 and s2 normal, no murmur appreciated. Resp: Clear to auscultation bilaterally, no rhonchi, rales, wheezing or rubs. Abdomen: Soft, pliable, bowel sounds present in all quadrants, mild suprapubic tender to palpation, no organomegly, no CVAT tenderness. Course Course Emergency Course: Portions of this record may have been created with voice recognition software. Level of Care: Express Care Visit Vital Signs Vital signs: Vital Signs Temperature 36.9 C 02/21/25 14:30 Pulse Rate 64 02/21/25 14:30 Respiratory Rate 18 02/21/25 14:30 Blood Pressure 136/84 02/21/25 14:30 Pulse Oximetry 100 02/21/25 14:30 Oxygen Delivery Room Air 02/21/25 14:30 Temperature 36.9 C 02/21/25 14:30 Pulse Rate 64 02/21/25 14:30 Respiratory Rate 18 02/21/25 14:30 Blood Pressure 136/84 02/21/25 14:30 Pulse Oximetry 100 02/21/25 14:30 Oxygen Delivery Room Air 02/21/25 14:30 Vital signs reviewed MDM - Female Genitourinary MDM Narrative Medical decision making narrative: At the time of visit patient is resting comfortably on the exam table. Patient appears to be nontoxic. Complaints sensation of her bladder being full and only being able to urinate a small amount. Reports on February 14 she was seen in the ER for a kidney stone that was in the left distal ureter-3 mm stone. Has been taking her Flomax. States she is no longer having any pain however she has not the stone pass. Denies any burning with urination. She denies any vaginal discharge her odor. No concern for STIs. Last menstrual period was January 15 2025. Has not taken any medications for her symptoms. Denies any blood in her urine. On exam patient has suprapubic tenderness, bowel sounds are present all 4 quadrants, abdomen soft and pliable, no CVAT tenderness. Urine dip ordered. KUB ordered. Labs: Urinalysis shows 3+ blood, 2+ protein, and trace of ketone. Diagnostics: KUB x-ray unchanged pattern of multiple phleboliths in the pelvis. The patient is noted stone in the mid to distal left ureter is not visualized and has either passed or is obscured by stool in the sigmoid colon. Plan: I suspect patient has hematuria with bladder fullness. KUB x-ray does not show any sign of a stone in the bladder and is uncertain if stone is still in the left ureter. Patient is not having any flank pain or abdominal pain. She does not have any fevers chills or body aches. Does have 2+ protein and blood in her urine. Will cover for UTI and have her follow-up with her PCP or Urology 3 to 5 days if her symptoms persist as she may need another CT scan to determine if she has an obstructed stone. Supportive measures were discussed with the patient and they voiced understanding discharge instructions and agrees to treatment plan. Return precautions reviewed Differential Diagnosis Differential diagnosis: Likely urinary tract infection, cystitis and other (Pyelonephritis, ureteral stone, obstruction stone in bladder) Lab Data Labs: Lab Results 02/21/25 Range/Units 15:03 POC Urine Color Brown POC Urine Clarity Cloudy POC Urine pH 6.0 POC Ur Specif [place] 1.030 POC Urine Protein 2+ (Negative) POC Ur Glucose (UA) Negative (Negative) POC Urine Ketones Negative (Negative) POC Urine Blood 3+ (Negative) POC Urine Nitrite Negative (Negative) POC Urine Bilirubin 1+ (Negative) POC Urine Urobilinogen 0.2 POC U Leukocyte Esteras Negative (Negative) Imaging Data Radiologist's impression: ITS Impressions Abdomen X-Ray 02/21/25 15:47 IMPRESSION: 1. Unchanged pattern of multiple phleboliths in the pelvis. The patient is noted stone in the mid to distal left ureter is not visualized and has either passed or is obscured by stool in the sigmoid colon. Discharge Plan Discharge Clinical Impression: Bladder pain Hematuria Qualifiers: Hematuria type: gross Qualified Code(s): R31.0 - Gross hematuria Patient Disposition: Home Condition: Stable Instructions: Antibiotic Form, Hematuria (ED), Pelvic Pain in Women (ED) Additional Instructions: Urinalysis positive for protein, blood, and bilirubin. We will send urine for culture KUB x-ray shows no visualized stone in the urinary bladder. Unable to fully assess if stone is still in the ureter or has passed due to amount of stool in the colon Take Bactrim as prescribed Increase fluids and stay well hydrated If symptoms persist in 3-5 days recommend follow-up with PCP or urology-may need another CT scan to be sure that stone has successfully passed. Go to the emergency room if symptoms worsen Patient Language: Turkish Prescriptions: New sulfamethoxazole-trimethoprim [Bactrim DS] 800-160 mg tablet 1 tablet PO Q12H 5 Days Qty: 10 0RF No Action glycopyrrolate 1 mg tablet metformin 500 mg tablet venlafaxine 75 mg capsule,extended release 24hr PO clonazepam 0.5 mg tablet terbinafine HCl 250 mg tablet propranolol 10 mg tablet gabapentin 300 mg capsule Ozempic 0.25 mg or 0.5 mg (2 mg/3 mL) pen injector SUBCUT tamsulosin 0.4 mg capsule 0.4 mg PO DAILY 7 Days Qty: 7 0RF Follow-up/Referrals: Nayan,Jud Romero APRN [Primary Care Provider, Unknown] Time of Disposition: 16:08 Quality NIHSS Nursing Documentation ED NIHSS nursing documentation: reviewed/agree
[2025-02-21 14:30] VITALS: BP 136/84; PULSE 64; RESP 18; TEMP 36.9; O2SAT 100
[2025-02-21 15:07] LABS: EDUAAPPEAR Cloudy; EDUABILI 1+ (Negative); EDUABLOOD 3+ (Negative); EDUACOLOR1 Brown; EDUAGLUCOSE Negative (Negative); EDUAKETONE Negative (Negative); EDUALEUKO Negative (Negative); EDUANITRATE Negative (Negative); EDUAPH 6.0; EDUAPROTEIN 2+ (Negative); EDUASPGRAVITY 1.030; EDUAUROBILI 0.2
== END 2025-02-21 16:15 | disposition home or self-care (01) ==
PROVIDERS: Emergency Provider Nurse Practitioner Family; PCP Nurse Practitioner
DX: R39.89 Other symptoms and signs involving the genitourinary system (principal); R31.0 Gross hematuria; E28.2 Polycystic ovarian syndrome; K21.9 Gastro-esophageal reflux disease without esophagitis; F41.9 Anxiety disorder, unspecified; F17.210 Nicotine dependence, cigarettes, uncomplicated
CPT/HCPCS: 74018; 81003; 87086; 99213; G0463